=== PATIENT | male | born 1935 | race Caucasian/White ===

== ENCOUNTER → 2018-08-18 | Outpatient (CLI) | payer MEDICARE ==
[~2018-08-18] MED LIST: ATOR20TA PO; CARV25TA PO; CHLO25TA3 PO; HYDR-4154 PO; LEVO125T11 PO; LOSA100T58 PO
== END | disposition home or self-care (01) ==
LOC: RAH 15:26
PROVIDERS: ATTEND Internal Medicine
DX: I82.492 Acute embolism and thrombosis of other specified deep vein of left lower extremity (principal)
CPT/HCPCS: 93971

== ENCOUNTER 2019-01-10 16:43 | Observation (INO) | payer MEDICARE ==
[~2019-01-10] VITALS: Ht 177.8 cm; Wt 112.6 kg
[2019-01-10 17:19] LABS: BASOPHILS % (AUTO) 0.8 % (0.0-5.0); EOSINOPHILS % (AUTO) 3.2 % (0.0-8.0); HEMATOCRIT 38.3 % (42-54); LYMPHOCYTES % (AUTO) 11.6 % (21.0-51.0); MEAN CORPUSCULAR HGB CONC 32.5 g/dL (32.0-36.0); MEAN CORPUSCULAR VOLUME 86.1 fL (79-99); MONOCYTES % (AUTO) 7.8 % (3.0-13.0); NEUTROPHILS % (AUTO) 76.6 % (40.0-77.0); PLATELET COUNT (AUTO) 122 K/uL (130-400); RED BLOOD CELL COUNT(AUTO) 4.44 MIL/uL (4.50-6.20); RED CELL DISTRIBUTION WIDTH 14.9 % (11.0-15.5); WHITE BLOOD COUNT (AUTO) 9.5 K/uL (4.8-10.8)
[2019-01-10 17:25] LABS: CREATININE 1.5 mg/dL (0.5-1.5)
[2019-01-10 17:31] LABS: ALBUMIN 3.6 g/dL (3.5-5.0); BILIRUBIN,TOTAL 0.5 mg/dL (0.2-1.0); TOTAL PROTEIN, SERUM 6.4 g/dL (6.0-8.3)
[2019-01-10 17:45] LABS: APPEARANCE,URINE CLOUDY (CLEAR); BILIRUBIN,URINE NEGATIVE (NEGATIVE); COLOR,URINE YELLOW (YELLOW); GLUCOSE, URINE (UA) NEGATIVE (NEGATIVE); KETONES,URINE NEGATIVE (NEGATIVE); LEUKOCYTE ESTERASE ,URINE NEGATIVE (NEGATIVE); NITRATE,URINE NEGATIVE (NEGATIVE); OCCULT BLOOD,URINE MODERATE (NEGATIVE); PROTEIN,URINE NEGATIVE (NEGATIVE); UROBILINOGEN,URINE 0.2 mg/dL (0.2-1.0)
[2019-01-10 18:22] LABS: BACTERIA,URINE None Seen /HPF (None Seen); RBC,URINE >100 /HPF (0-1); SQUAMOUS EPITHELIAL CELL,UR 0-2 /HPF (0-2)
[2019-01-10 18:49] LABS: INR 1.07 (0.85-1.15); PARTIAL THROMBOPLASTIN TIME 39.9 SEC (26.3-35.5); PROTHROMBIN TIME 11.2 SEC (9.6-11.6)
[2019-01-10] MEDS: SODIUM CHLORIDE 0.9% 1000ML 1,000 ML IV SCH (19:49)
[2019-01-10] MEDS ORDERED: ACETAMINOPHEN 325 MG TAB PO PRN (20:00)
[2019-01-10] MEDS ORDERED: MORPHINE SULFATE 2 MG/ML 1ML SYG IV PRN (20:00)
[2019-01-10] MEDS ORDERED: ONDANSETRON HCL 4 MG/2 ML VIAL IV PRN (20:00)
[2019-01-10] MEDS ORDERED: SODIUM CHLORIDE 0.9% 1000ML 1,000 ML IV ONE (20:22)
[2019-01-10] MEDS ORDERED: FAMOTIDINE/PF 20 MG/2 ML VIAL IV ONE (22:21)
[2019-01-10 22:50] VITALS: BP 152/71
[2019-01-10] MEDS ORDERED: ATOR40TA69 PO (23:16)
[2019-01-10] MEDS ORDERED: RIVA15TA PO (23:16)
[2019-01-10] MEDS ORDERED: TAMS-1 PO (23:16)
[2019-01-10] MEDS ORDERED: LEVO125T11 PO (23:16)
[2019-01-10] MEDS ORDERED: CARV25TA PO (23:16)
[2019-01-10] MEDS ORDERED: LOSA100T58 PO (23:16)
[2019-01-10] MEDS ORDERED: HYDR-4154 PO (23:16)
[2019-01-10] MEDS ORDERED: CHLO50TA PO (23:16)
[2019-01-11 04:00] VITALS: BP 130/55
[2019-01-11] MEDS: SODIUM CHLORIDE 0.9% 1000ML 1,000 ML IV SCH (06:31)
[2019-01-11] MEDS: LEVOTHYROXINE 125 MCG TABLET PO SCH (06:57)
--- NOTE | 2019-01-11 07:00 | NUR ---
TRUE URINE OUTPUT Patient has a 3 way cole catheter, 20 Fr, receiving CBI. True urine output is 1,150 cc.
[2019-01-11 08:00] VITALS: BP 147/79
[2019-01-11] MEDS: FAMOTIDINE 20MG TAB 20 MG TAB PO SCH (08:56)
[2019-01-11] MEDS: HYDRALAZINE HCL 25 MG TABLET PO SCH ×2 (08:56→22:01)
[2019-01-11] MEDS: TAMSULOSIN HCL 0.4 MG CAP.ER.24H PO SCH ×2 (08:57→22:00)
[2019-01-11] MEDS: CARVEDILOL 25 MG TABLET PO SCH ×2 (08:57→22:01)
[2019-01-11] MEDS ORDERED: ATORVASTATIN CALCIUM 40 MG TABLET PO SCH (09:00)
[2019-01-11] MEDS ORDERED: CHLORTHALIDONE 50 MG PO SCH ×2 (09:00→21:00)
[2019-01-11] MEDS: LOSARTAN 100 MG TABLET PO SCH (09:01)
[2019-01-11 12:00] VITALS: BP 115/76
[2019-01-11 16:00] VITALS: BP 122/57
[2019-01-11 20:00] VITALS: BP 123/67
--- NOTE | 2019-01-11 20:14 | NUR ---
cm note met with patient and , pt indenpendent with adls and ambulation. no dme. pt drives. states d agueda is back to home at dc. no dc needs. Addendum: 01/11/19 at 2015 by NICHOLE RIZVI CM Amended: Links added.
[2019-01-11] MEDS: ATORVASTATIN CALCIUM 20 MG TABLET PO SCH (22:05)
[2019-01-12] VITALS: BP 117/57
[2019-01-12 04:00] VITALS: BP 118/61
[2019-01-12] MEDS: LEVOTHYROXINE 125 MCG TABLET PO SCH (06:30)
[2019-01-12 08:00] VITALS: BP 130/76
[2019-01-12] MEDS: ATORVASTATIN CALCIUM 20 MG TABLET PO SCH (08:28)
[2019-01-12] MEDS: HYDRALAZINE HCL 25 MG TABLET PO SCH (08:28)
[2019-01-12] MEDS: FAMOTIDINE 20MG TAB 20 MG TAB PO SCH (08:29)
[2019-01-12] MEDS: TAMSULOSIN HCL 0.4 MG CAP.ER.24H PO SCH (08:29)
[2019-01-12] MEDS: CARVEDILOL 25 MG TABLET PO SCH (08:30)
[2019-01-12] MEDS: LOSARTAN 100 MG TABLET PO SCH (09:02)
--- NOTE | 2019-01-12 11:46 | NUR ---
activity: amb to bedside chair, steady gait
[2019-01-12 12:00] VITALS: BP 117/75
--- NOTE | 2019-01-12 13:00 | NUR ---
BLADDER IRRIGATION: F/C DRAINING CL YELLOW URINE. IRRIGATION DISCONTINUED PER Hung BURGOS RN AND 3 WAY F/C PORT CLAMPED WITH CATHETER PLUG. PT INSTRUCTED ON F/C CARE AND EMPTYING OF F/C BAG.
--- NOTE | 2019-01-12 15:45 | NUR ---
ASSESSMENT: DR SUDHAKAR PARSONS HERE DISCUSSED SCAN RESULTS WITH PT AND POC FOR DISCHARGE HOME TODAY FOLLOW UP WITH DR AGUIRRE IN 1 WEEK FOR F/C REMOVAL.
[2019-01-12 16:00] VITALS: BP 121/77
--- NOTE | 2019-01-12 17:30 | NUR ---
URINE: F/C DRAINING YELLOW URINE.
--- NOTE | 2019-01-12 17:50 | NUR ---
TELEMETRY DISCONTINUED.
--- NOTE | 2019-01-12 18:09 | NUR ---
DISCHARGE: DISCHARGE INSTRUCTIONS GIVEN TO PT AND ON SELF CARE WITH HEMATURIA, F/C CARE USING ASEPTIC TECHNIQUE. HOW TO EMPTY CATHETER USING ASEPTIC TECHNIQUE AND TO ALWAYS KEEP CATHETER BAG BELOW THE BLADDER AND BAG NOT TO TOUCH THE FLOOR. PT REQUESTING LEG BAG AND PROVIDED WITH ONE AND INSTRUCTED ON HOW TO [facility] BAG KEEPING ASEPTIC TECHNIQUE AT ALL TIMES. INSTRUCTED TO INCREASE FLUID INTAKE. TO FOLLOW UP WITH DR MARIANO ON 01/20 AT 1000 AM OR SOONER, TO FOLLOW UP WITH DR EVANGELISTA ON Friday AT 1630 AND TO ASK ABOUT HIS BLOOD THINNER. PT INSTRUCTED BY PEDRO TREADWELL TO NOT TAKE FOR NOW. PT UNDERSTANDS TO RESUME HOME MEDICATIONS. FOR ANY PROBLEMS TO CALL HIS DR OR COME BACK TO THE HOSPITAL ER DEPT. FULL UNDERSTANDING VERBALIZED AND COPIES OF ALL INSTRUCTIONS GIVEN TO PT.
--- NOTE | 2019-01-12 18:30 | NUR ---
DISCHARGE: DISCHARGED HOME VIA W/C TO PRIVATE CAR WITH .
== END 2019-01-12 18:30 | disposition home or self-care (01) ==
LOC: EDH 16:43 → EDHIP 19:49 → 3CH 22:13
PROVIDERS: ADMIT Internal Medicine; ATTEND Internal Medicine
DX: R31.0 Gross hematuria (principal); I48.91 Unspecified atrial fibrillation; I10 Essential (primary) hypertension; K76.89 Other specified diseases of liver; Z79.01 Long term (current) use of anticoagulants; Z82.0 Family history of epilepsy and other diseases of the nervous system; Z82.3 Family history of stroke; Z82.49 Family history of ischemic heart disease and other diseases of the circulatory system; Z82.5 Family history of asthma and other chronic lower respiratory diseases; Z83.3 Family history of diabetes mellitus; Z85.46 Personal history of malignant neoplasm of prostate; Z85.528 Personal history of other malignant neoplasm of kidney; Z87.891 Personal history of nicotine dependence; Z90.5 Acquired absence of kidney; Z92.3 Personal history of irradiation; Z96.653 Presence of artificial knee joint, bilateral; Z79.899 Other long term (current) drug therapy
CPT/HCPCS: 36415; 74176; 76770; 80053; 81001; 85025; 85610; 85730; 87088; 99284; G0378 ×47; J3490; J7030 ×2

== ENCOUNTER → 2019-06-01 | Outpatient (CLI) | payer MEDICARE ==
[~2019-06-01] MED LIST changes: -ATOR20TA PO; +ATOR40TA69 PO; -CHLO25TA3 PO; +CHLO50TA PO; +RIVA15TA PO; +TAMS-1 PO
== END | disposition home or self-care (01) ==
LOC: RAH 13:23
PROVIDERS: ATTEND Urology
DX: N28.1 Cyst of kidney, acquired (principal); D30.01 Benign neoplasm of right kidney; R31.0 Gross hematuria; Z90.5 Acquired absence of kidney
CPT/HCPCS: 76770

== ENCOUNTER → 2020-04-13 | Outpatient (CLI) | payer MEDICARE | END | disposition home or self-care (01) | LOC: RAH 09:47 | PROVIDERS: ATTEND Urology | DX: C64.9 Malignant neoplasm of unspecified kidney, except renal pelvis (principal); K76.89 Other specified diseases of liver; N28.1 Cyst of kidney, acquired; K57.30 Diverticulosis of large intestine without perforation or abscess without bleeding | CPT/HCPCS: 74176 ==

== ENCOUNTER → 2021-06-13 | Outpatient (CLI) | payer MEDICARE | END | disposition home or self-care (01) | LOC: RAH 10:50 | PROVIDERS: ATTEND Clinical Nurse Specialist Family Health | DX: M47.814 Spondylosis without myelopathy or radiculopathy, thoracic region (principal); M47.816 Spondylosis without myelopathy or radiculopathy, lumbar region; R07.81 Pleurodynia; M54.9 Dorsalgia, unspecified | CPT/HCPCS: 71100; 72070; 72100 ==